=== PATIENT | female | born 1950 | race Caucasian/White ===

== ENCOUNTER → 2018-02-22 | Outpatient (CLI) | payer MEDICARE, BC | LOC: LABPAT 14:10 | PROVIDERS: ATTEND Orthopaedic Surgery | DX: Z01.812 Encounter for preprocedural laboratory examination (principal) | CPT/HCPCS: 87070 ==

== ENCOUNTER → 2018-03-25 | Outpatient (CLI) | payer MEDICARE, BC ==
[2018-03-25 12:47] LABS: Prothrombin Time 10.5 sec (9.0-12.0)
== END ==
LOC: LABPAT 11:48
PROVIDERS: ATTEND Orthopaedic Surgery
DX: Z01.812 Encounter for preprocedural laboratory examination (principal); Z51.81 Encounter for therapeutic drug level monitoring; M17.11 Unilateral primary osteoarthritis, right knee
CPT/HCPCS: 85610

== ENCOUNTER 2018-03-28 08:19 | Day surgery (SDC) | payer MEDICARE, BC ==
[2018-03-22 16:01] VITALS: BMI 27.8
--- NOTE | 2018-03-27 15:06 | HP ---
HISTORY AND PHYSICAL HISTORY: Rajani Torres is a 68-year-old patient seen with progressive right knee symptomatic osteoarthritis. We discussed treatment options. She elected to proceed with right total knee arthroplasty. Consent was obtained. Medical clearance was provided by Dr. Lara. PAST MEDICAL HISTORY: Hypertension, hyperlipidemia, [id number] diabetes. PAST SURGICAL HISTORY: Right knee arthroscopy. MEDICATIONS: Metformin, simvastatin, lisinopril/hydrochlorothiazide, Naprosyn. ALLERGIES: None reported. SOCIAL HISTORY: Patient denies tobacco use. PHYSICAL EXAMINATION: Evaluation of the right knee, range of motion is -1 to 120 degrees. There is tenderness along the medial joint line crepitus along the medial patellofemoral compartments range of motion. Pain with patellofemoral compression. Ligaments stable. Hip rotation without pain. Distal neurovascular exam is intact. RADIOGRAPHS: Radiographs of the right knee revealed moderate to severe medial moderate to severe patellofemoral compartment osteoarthritis. IMPRESSION: 1. Right knee osteoarthritis. 2. Hypertension. 3. Hyperlipidemia. 4. Ukf-grnqnce-zmnsjrocl diabetes. PLAN: Right total knee arthroplasty. MMODL / IJN: [id number] /
[~2018-03-28 08:19] MED LIST: ACETAMINOPHEN TAB 500 MG TAB PO ONE; DEXAMETHASONE SOD PHOSPHATE 10 MG/ML 1 ML VIAL IV ONE; HYDROmorphone 0.5 MG/0.5 ML SYRINGE IVP PRN; LACTATED RINGERS 1,000 ML IV SCH; LIDOCAINE 1% 20 ML VIAL (10MG/ML) FOR IV START INTRADERMA PRN; MELOXICAM 7.5 MG TAB PO ONE; ONDANSETRON 4 MG/2 ML VIAL IVP ONE; SCOPOLAMINE 1.5MG/72HR PATCH TRANSDERM ONE; TRANEXAMIC ACID 1,000 MG in SODIUM CHLORIDE 0.9% 50 ML IVPB ONE
[2018-03-28 09:14] LABS: Glucose,Whole Blood 142 mg/dL (75-99)
[2018-03-28] MEDS ORDERED: MIDAZOLAM 2 MG/2 ML VIAL IVP ONE (09:30)
[2018-03-28] MEDS ORDERED: fentaNYL (PF) 50 MCG/ML 2 ML AMP IVP ONE (09:30)
[2018-03-28] MEDS ORDERED: fentaNYL (PF) 50 MCG/ML 2 ML AMP ONE (09:46)
[2018-03-28] MEDS ORDERED: SODIUM CHLORIDE 0.9% 100 ML BAG ONE (09:46)
[2018-03-28] MEDS ORDERED: MIDAZOLAM 2 MG/2 ML VIAL ONE (09:46)
[2018-03-28] MEDS ORDERED: PROPOFOL 10 MG/ML 20 ML VIAL IV ONE (09:46)
[2018-03-28] MEDS ORDERED: TRANEXAMIC ACID 1,000 MG/10 ML VIAL ONE (09:46)
[2018-03-28] MEDS: ceFAZolin IN SWFI 2 GM/20 ML SYRINGE IVP ONE ×2 (09:49→10:17)
[2018-03-28] MEDS ORDERED: ROPIVACAINE 1,100 MG, SODIUM CHLORIDE 0.9% 500 ML 330 ML MISCELLANE PRN ×2 (10:01)
--- NOTE | 2018-03-28 10:02 | P.ONQ ---
Anesthesiology Proc Note - PNB - Peripheral Nerve Block Performed Right Adductor Canal Infusion Time Out Performed: Yes Procedure Start Time: 09:30 Indication: Acute Post-Operative Pain Sedation Type: Sedate with meaningful contact maintained Preparation: Sterile Prep Position: Supine Catheter Depth at Skin (cm): 6 Catheter: Indwelling Needle Types: Other (see comment) (Ugo) Needle Size: 100mm (4") Needle Gauge: 18 Technique: Ultrasound Injectate: 0.5% Ropivacaine (see comment for volume) (20cc) Blood Aspirated: No Pain Paresthesia on Injection Noted: No Resistance on Injection: Normal Events: Uneventful and Well Tolerated
[2018-03-28] MEDS ORDERED: ROPIVACAINE 246.25 MG, EPINEPHrine 0.5 MG, KETOROLAC 30 MG, cloNIDine HCL/PF 80 MCG, WA... MISCELLANE ONE ×5 (10:05)
[2018-03-28] MEDS ORDERED: ceFAZolin 3,000 MG in SODIUM CHLORIDE 0.9% IRRIGATIO 3,000 ML IRRIGATION ONE (10:17)
[2018-03-28] MEDS ORDERED: ONDANSETRON 4 MG/2 ML VIAL IVP PRN (11:20)
[2018-03-28] MEDS ORDERED: HYDROmorphone 0.5 MG/0.5 ML SYRINGE IVP PRN ×3 (11:20)
[2018-03-28] MEDS ORDERED: HYDROcodone/APAP 5-325MG 1 EACH TAB PO PRN (11:20)
[2018-03-28] MEDS ORDERED: NALOXONE 0.4 MG/ML 1 ML VIAL IV PRN (11:20)
--- NOTE | 2018-03-28 11:20 | P.OP ---
Date of Procedure: 03/28/18 Preoperative Diagnosis: Right knee osteoarthritis Postoperative Diagnosis: Right knee osteoarthritis Procedure(s) Performed: Right total knee arthroplasty Implants: 1. Depuy attune size 6 narrow right cruciate retaining cemented femur 2. Depuy attune size 5 fixed bearing cemented tibial baseplate 3. Depuy attune size 6 fixed bearing cruciate retaining 7 mm polyethylene tibial insert 4. Depuy attune 35 mm all polyethylene cemented patella Anesthesia: regional (Adductor canal catheter), local, spinal Surgeon: Hai Bateman Mill Tender Second Operator #1: Rick Sapp Estimated Blood Loss (ml): 45 Pathology: other (Bone) Condition: stable Disposition: PACU Indications for Procedure: 68-year-old patient seen with symptomatic right knee osteoarthritis. After treatment options were discussed, she elected to proceed with total knee arthroplasty. Operative Findings: See description of procedure Description of Procedure: Patient was taken to the operative suite after having an adductor canal catheter placed by the department of anesthesia. Patient underwent a spinal anesthetic by the department of anesthesia. Patient was given preoperative IV intake antibiotics and TXA. A well-padded tourniquet was placed about the right lower extremity. The lower extremity was then prepped and draped in the normal sterile orthopedic fashion. The extremity was elevated, a tourniquet was insufflated to 300. A standard anterior incision was made sharply through skin. Dissection was taken down through the subcutaneous soft tissues down to the extensor mechanism. A medial arthrotomy was performed, patella was everted and knee was flexed. There was advanced osteoarthritis noted. I introduced my distal intramedullary femoral drill. I then introduced the distal femoral cutting jig. Raymundo STACY secured the cutting jig with 2 pins. I held retractors in position while Raymundo STACY performed the distal femoral resection through the guide area we now removed her distal femoral cutting guide. We now placed our 4-in-1 femoral cutting block and positioned and it was secured with 2 pins by Raymundo STACY while I held the block in position. The distal femoral finishing was now completed. A proximal tibial cutting guide was positioned. I held the guide in the appropriate position with both hands well Raymundo STACY inserted stabilizing pins into the guide. Proximal tibial cut was made. We now placed a trial femoral component into position, along with an appropriate size tibial tray and insert. We now took the knee through range of motion and had full extension good flexion and good overall soft tissue balance noted. The patella was everted and stabilized with 2 towel clips held by Raymundo STACY while I performed a flush with patellar quad tendon utilizing a fresh sawblade. We templated the patella, appropriate drill holes were made. An appropriate trial patella was positioned, knee was taken through full range of motion with the patella tracking very nicely. The trial patella was removed. Drill holes were made through the femoral component. All trial components were removed after marking off the appropriate rotation of the tibia. Retractors were now positioned along the proximal tibia. An appropriate keel punch was made with the appropriate size tibial guide by myself on Raymundo STACY assisted by holding retractors. At this point appropriate size implants were chosen and opened. The joint was irrigated copiously with pulse lavage mechanical irrigation. The posterior capsule was infiltrated with local analgesic. The wound was irrigated with pulse lavage mechanical irrigation. We mixed antibiotic methylmethacrylate. We placed the knee into flexion. We placed multiple retractors assisted by Raymundo STACY to expose the proximal tibia. Once the methyl methacrylate was ready, the tibial component was cemented into place removing any excess methylmethacrylate form by both myself and Raymundo STACY. The femoral component was cemented into place removing the removing any excess methylmethacrylate performed by both myself and Raymundo STACY. We then inserted the appropriate size polyethylene tibial insert. We made sure that it was locked into position. We took the knee into full extension, and then back in a flexion making sure we had removed any excess methylmethacrylate. The patellar component was then cemented down and secured with clamp. Excess methylmethacrylate removed. We kept the knee in full extension, patellar clamp in position until methylmethacrylate had hardened. Once it had hardened the patellar clamp was removed. The knee was taken through full range of motion. The patella tracked nicely. There was good soft tissue balancing. The tourniquet was now released. Additional hemostasis was achieved via electrocautery. A second gram of TXA was given. The wound again was irrigated with pulse lavage mechanical irrigation. The superficial soft tissues were infiltrated local analgesic. The extensor mechanism was repaired with Vicryl. We checked the repair with range of motion and it was stable. The subcutaneous soft tissues were repaired with Vicryl in layers. The skin was approximated with pernio/Dermabond. Sterile dressings were applied followed by loose web roll and Cory bandage. The patient was transferred to a bed, and taken to recovery in stable and satisfactory condition. Raymundo STACY assisted with this complex procedure.
--- NOTE | 2018-03-28 12:13 | XR ---
EXAMINATION TYPE: XR knee limited RT DATE OF EXAM: 03/28/2018 CLINICAL HISTORY: Right knee pain and arthritis status post total knee replacement. TECHNIQUE: Portable AP and crosstable lateral views of the right knee are obtained immediately posto peratively. COMPARISON: None FINDINGS: Metallic hardware from total right knee arthroplasty is seen and appears satisfactory in a lignment and position. There is evidence of recent surgery with diffuse subcutaneous gas and soft ti ssue swelling noted. IMPRESSION: METALLIC HARDWARE FROM TOTAL RIGHT KNEE ARTHROPLASTY IS SATISFACTORY IN ALIGNMENT.
[2018-03-28 12:21] LABS: Glucose,Whole Blood 161 mg/dL (75-99)
[2018-03-28] MEDS ORDERED: SODIUM CHLORIDE 0.9% 1,000 ML IV ONE (12:43)
[2018-03-28] MEDS: traMADol 50 MG TAB PO SCH ×2 (14:30→18:41)
[2018-03-28] MEDS: LACTATED RINGERS 1,000 ML IV SCH (15:20)
[2018-03-28 17:34] LABS: Glucose,Whole Blood 176 mg/dL (75-99)
[2018-03-28] MEDS: ceFAZolin IN SWFI 2 GM/20 ML SYRINGE IVP SCH ×2 (18:34→23:24)
--- NOTE | 2018-03-28 20:56 | P.CONS ---
History of Present Illness - History of Present Illness this is a pleasant 68 yo F she is status post Right total knee arthroplasty , she has past medical history of diabetes mellitus, hypertension , hyperlipidemia and we were consulted for medical management . pt was lying in bed fully awake and oriented. she states her abd pain is controlled , she denies chest pain , no dyspnea , no abdominal pain . Past Medical History Past Medical History: Diabetes Mellitus, Hyperlipidemia, Hypertension, Osteoarthritis (OA) History of Any Multi-Drug Resistant Organisms: None Reported Past Surgical History: Appendectomy, Hysterectomy, Orthopedic Surgery Additional Past Surgical History / Comment(s): yakov knee arthroscopy, rt rotator cuff, yakov carpal tunnel, breast biopsy "benign" Past Anesthesia/Blood Transfusion Reactions: Motion Sickness, Postoperative Nausea & Vomiting (PONV) Smoking Status: Never smoker - Past Family History Mother Family Medical History: No Reported History Medications and Allergies Home Medications Medication Instructions Recorded Confirmed Type Lisinopril-Hctz 10-12.5 mg 0.5 tab PO DAILY 11/16/14 03/28/18 History [Zestoretic 10-12.5] Naproxen Sodium [Aleve] 220 mg PO Q12HR 11/16/14 03/22/18 History Simvastatin [Zocor] 40 mg PO HS 11/16/14 03/28/18 History metFORMIN HCL [Glucophage] 500 mg PO BID 11/16/14 03/28/18 History Allergies Allergy/AdvReac Type Severity Reaction Status Date / Time No Known Allergies Allergy Verified 11/16/14 08:57 Physical Exam Vitals: Vital Signs Temp Pulse Pulse Resp BP BP Pulse Ox 03/28/18 12:49 60 16 123/61 95 03/28/18 12:34 63 16 121/60 95 03/28/18 12:15 61 16 130/61 94 L 03/28/18 12:00 59 L 16 128/61 100 03/28/18 11:45 97.6 F 69 14 133/64 99 03/28/18 09:38 56 L 18 143/71 99 03/28/18 09:04 203/90 03/28/18 08:43 97.6 F 71 18 215/92 98 Intake and Output 03/27/18 03/28/18 03/28/18 22:59 06:59 14:59 Intake Total 1026 Output Total 45 Balance 981 Intake: IV 1026 Output: Estimated Blood Loss 45 GENERAL: The patient is alert and oriented x3, not in any acute distress. Well developed, well nourished. HEENT: Pupils are round and equally reacting to light. EOMI. No scleral icterus. No conjunctival pallor. Normocephalic, atraumatic. No pharyngeal erythema. No thyromegaly. CARDIOVASCULAR: S1 and S2 present. No murmurs, rubs, or gallops. PULMONARY: Chest is clear to auscultation, no wheezing or crackles. ABDOMEN: Soft, nontender, nondistended, normoactive bowel sounds. No palpable organomegaly. MUSCULOSKELETAL: No joint swelling or deformity. -EXTREMITIES: No cyanosis, clubbing, or pedal edema. her right lower extremity is is dressing NEUROLOGICAL: Gross neurological examination did not reveal any focal deficits. SKIN: No rashes. Results Labs: Abnormal Lab Results - Last 24 Hours (Table) 03/28/18 03/28/18 Range/Units 08:59 12:18 POC Glucose (mg/dL) 142 H 161 H (75-99) mg/dL Assessment and Plan Assessment: this is a pleasant 68 o F she is status post right knee arthroplasty . Labs and medication were reviewed. Continue same treatment. Continue with symptomatic treatment. Resume home medication. Monitor lytes and vitals. DVT prophylaxis and pain management as per primary team. Further recommendations of the clinical course of the patient DVT prophylaxis: she is on lovenox GI Prophylaxis: Pepcid PT/OT: Pending, pt possible will need rehab.
[2018-03-28] MEDS ORDERED: SENNOSIDES-DOCUSATE SODIUM 1 EACH TAB PO SCH (21:00)
[2018-03-28] MEDS ORDERED: ATORVASTATIN 20 MG TAB PO SCH (21:00)
[2018-03-28 21:11] LABS: Glucose,Whole Blood 219 mg/dL (75-99)
[2018-03-28] MEDS: HYDROcodone/APAP 5-325MG 1 EACH TAB PO PRN (23:21)
[2018-03-28] MEDS: ENOXAPARIN 30 MG/0.3 ML SYRINGE SQ SCH (23:22)
[2018-03-28] MEDS: INSULIN ASPART 100 UNIT/ML 1 ML 10 ML VIAL SQ SCH (23:23)
[2018-03-28 23:31] LABS: Glucose,Whole Blood 167 mg/dL (75-99)
[2018-03-29] MEDS: traMADol 50 MG TAB PO SCH ×3 (00:35→13:18)
[2018-03-29] MEDS: LACTATED RINGERS 1,000 ML IV SCH ×2 (00:40→13:19)
[2018-03-29 07:14] VITALS: BP 117/45; PULSE 63; RESP 12; TEMP 97.9
[2018-03-29] MEDS ORDERED: INSULIN ASPART 100 UNIT/ML 1 ML 10 ML VIAL SQ SCH (07:30)
[2018-03-29 08:00] LABS: Glucose,Whole Blood 118 mg/dL (75-99)
[2018-03-29 08:09] LABS: Basophils % (A) 0 %; Eosinophils # (A) 0.1 k/uL (0-0.7); Eosinophils % (A) 1 %; HCT 31.9 % (34.0-46.0); HGB 10.7 gm/dL (11.4-16.0); Lymphocytes # (A) 2.1 k/uL (1.0-4.8); Lymphocytes % (A) 22 %; MCH 29.3 pg (25.0-35.0); MCHC 33.5 g/dL (31.0-37.0); MCV 87.7 fL (80.0-100.0); Mean Platelet Volume 6.4; Monocytes # (A) 0.4 k/uL (0-1.0); Monocytes % (A) 4 %; Neutrophils # (A) 6.8 k/uL (1.3-7.7); Neutrophils % (A) 73 %; Platelet Count 206 k/uL (150-450); RBC 3.64 m/uL (3.80-5.40); RDW 13.1 % (11.5-15.5); WBC 9.3 k/uL (3.8-10.6)
[2018-03-29] MEDS ORDERED: MELOXICAM 7.5 MG TAB PO SCH (09:00)
[2018-03-29] MEDS: INSULIN ASPART 100 UNIT/ML 1 ML 10 ML VIAL SQ SCH ×2 (10:13→13:20)
[2018-03-29] MEDS: ENOXAPARIN 30 MG/0.3 ML SYRINGE SQ SCH (10:49)
--- NOTE | 2018-03-29 11:05 | P.PN ---
Subjective this is a pleasant 68 yo F she is status post Right total knee arthroplasty , she has past medical history of diabetes mellitus, hypertension , hyperlipidemia and we were consulted for medical management . pt was lying in bed fully awake and oriented. she states her abd pain is controlled , she denies chest pain , no dyspnea , no abdominal pain . 03/29/2018 Patient is doing well with minimal pain at the surgery site of the right knee. Patient denies chest pain, no dyspnea. No change in urine or bowel habits.Vitas looks stable. WBC is 9.3K, hemoglobin 10.7. Sugar is controlled.pain management and DVT prophylaxis as per the primary surgical team. Currently patient on Lovenox 30 mg twice a day. Objective - Vital Signs Vital signs: Vital Signs Temp 97.9 F 03/29/18 07:13 Pulse 63 03/29/18 07:13 Resp 12 03/29/18 07:13 BP 117/45 03/29/18 07:13 Pulse Ox 96 03/29/18 07:13 Intake & Output 03/28/18 03/29/18 03/29/18 18:59 06:59 18:59 Intake Total 1026 1040 Output Total 45 600 Balance 981 440 Weight 73.482 kg Intake: IV 1026 Intake, IV Titration 1040 Amount Lactated Ringers 1,000 ml 1040 @ 80 mls/hr IV .[id number] [facility] Rx#:[id number] Output: Urine 600 Estimated Blood Loss 45 Other: Voiding Method Toilet # Voids 1 - Exam GENERAL: The patient is alert and oriented x3, not in any acute distress. Well developed, well nourished. HEENT: Pupils are round and equally reacting to light. EOMI. No scleral icterus. No conjunctival pallor. Normocephalic, atraumatic. No pharyngeal erythema. No thyromegaly. CARDIOVASCULAR: S1 and S2 present. No murmurs, rubs, or gallops. PULMONARY: Chest is clear to auscultation, no wheezing or crackles. ABDOMEN: Soft, nontender, nondistended, normoactive bowel sounds. No palpable organomegaly. MUSCULOSKELETAL: No joint swelling or deformity. -EXTREMITIES: No cyanosis, clubbing, or pedal edema. her right lower extremity is is dressing NEUROLOGICAL: Gross neurological examination did not reveal any focal deficits. SKIN: No rashes. - Labs CBC & Chem 7: 03/29/18 07:14 Labs: Abnormal Lab Results - Last 24 Hours (Table) 03/28/18 03/28/18 03/28/18 Range/Units 12:18 17:22 21:00 RBC (3.80-5.40) m/uL Hgb (11.4-16.0) gm/dL Hct (34.0-46.0) % POC Glucose (mg/dL) 161 H 176 H 219 H (75-99) mg/dL 03/28/18 03/29/18 03/29/18 Range/Units 23:19 07:14 07:47 RBC 3.64 L (3.80-5.40) m/uL Hgb 10.7 L (11.4-16.0) gm/dL Hct 31.9 L (34.0-46.0) % POC Glucose (mg/dL) 167 H 118 H (75-99) mg/dL Assessment and Plan Assessment: history of degenerative joint disease, status post right knee arthroplasty History of diabetes mellitus Essential hypertension Hyperlipidemia Plan: this is a pleasant 68 o F she is status post right knee arthroplasty . Labs and medication were reviewed. Continue same treatment. Continue with symptomatic treatment. Resume home medication. Monitor lytes and vitals. DVT prophylaxis and pain management as per primary team. Further recommendations of the clinical course of the patient DVT prophylaxis: she is on lovenox GI Prophylaxis: Pepcid PT/OT: Pending, pt possible will need rehab. patient was instructed to follow up with PCP within one week of discharge Packet for consulting us, please feel free to contact us for any further question or clarification
--- NOTE | 2018-03-29 11:28 | P.PN ---
Progress Note - Text Anesthesia POD 1. Patient is status post right TKR under spinal anesthesia with a right adductor canal catheter placed for postoperative pain relief. With ropivacaine 0.2% running at 6 cc's per hour, the patient's VAS is (0, 3). Catheter site is clean dry and intact.
--- NOTE | 2018-03-29 11:31 | P.PN ---
Progress Note - Text Anesthesia POD 1. Patient is status post right TKR under spinal anesthesia with a right adductor canal catheter placed for postoperative pain relief. With ropivacaine 0.2% running at 8 cc's per hour, the patient's VAS is (0, 3). Catheter site is clean dry and intact.
[2018-03-29] MEDS ORDERED: MULTIVITAMINS, THERA 1 EACH TAB PO SCH (12:00)
[2018-03-29 12:02] LABS: Glucose,Whole Blood 132 mg/dL (75-99)
--- NOTE | 2018-03-29 12:26 | P.PN ---
Subjective Progress Note Date: 03/29/18 Principal diagnosis: Status post right total knee arthroplasty Patient is seen today resting in her hospital bed, she appears comfortable. She is tolerated physical therapy well. She has no acute complaints at this time. Denies any chest pain or shortness of breath. Objective - Vital Signs Vital signs: Vital Signs Temp 97.9 F 03/29/18 07:13 Pulse 63 03/29/18 07:13 Resp 12 03/29/18 07:13 BP 117/45 03/29/18 07:13 Pulse Ox 96 03/29/18 07:13 Intake & Output 03/28/18 03/29/18 03/29/18 18:59 06:59 18:59 Intake Total 1026 1040 Output Total 45 600 Balance 981 440 Weight 73.482 kg Intake: IV 1026 Intake, IV Titration 1040 Amount Lactated Ringers 1,000 ml 1040 @ 80 mls/hr IV .[id number] [facility] Rx#:[id number] Output: Urine 600 Estimated Blood Loss 45 Other: Voiding Method Toilet # Voids 1 - Exam Right lower extremity: Incision is clean, dry, and intact. The exofin fusion tape is in good condition. There is minimal soft tissue swelling and ecchymosis surrounding the medial and lateral aspects of the incision. Calf is soft, no tenderness with palpation. Plantar flexion, dorsiflexion, EHL, FHL are intact. Sensory exam to light touch throughout the extremity is intact, dorsal pedis pulses 2+. - Labs CBC & Chem 7: 03/29/18 07:14 Labs: Abnormal Lab Results - Last 24 Hours (Table) 03/28/18 03/28/18 03/28/18 Range/Units 17:22 21:00 23:19 RBC (3.80-5.40) m/uL Hgb (11.4-16.0) gm/dL Hct (34.0-46.0) % POC Glucose (mg/dL) 176 H 219 H 167 H (75-99) mg/dL 03/29/18 03/29/18 03/29/18 Range/Units 07:14 07:47 11:47 RBC 3.64 L (3.80-5.40) m/uL Hgb 10.7 L (11.4-16.0) gm/dL Hct 31.9 L (34.0-46.0) % POC Glucose (mg/dL) 118 H 132 H (75-99) mg/dL Assessment and Plan Plan: Assessment: 1. Postop day #1 status post right total knee arthroplasty Plan: Pain control, we'll discharge home on oral medication GI and DVT prophylaxis, aspirin 81 mg twice a day Wound care instructions were discussed Home physical therapy and nursing after discharge Medical recommendations Discharge planning: Plan for dc home today Time with Patient: Less than 30
--- NOTE | 2018-03-29 12:29 | P.DS ---
Providers Date of admission: 03/28/2018 Expected date of discharge: 03/29/18 Attending physician: Hai Bateman Consults: 03/28/18 11:20 Consult Physician Routine Consulting Provider: Zackery Lara Consult Reason/Comments: Medical management Do you want consulting provider notified?: Yes 03/28/18 11:54 Consult Physician Routine Consulting Provider: Silvio Vasques Consult Reason/Comments: Medical Managment Do you want consulting provider notified?: Already Contacted Primary care physician: Zackery Lara [facility] Course: Date of admission: 03/28/2018 Date of discharge: 03/29/2018 Admission diagnosis: Status post right total knee arthroplasty Discharge diagnosis: Same Attending physician: Dr. Bateman Surgical procedures: Right total knee arthroplasty Brief history: Patient is a 5-year-old female with a history of progressive primary right knee osteoarthritis. At this point patient has failed conservative treatment measures and has opted to proceed with a elective right total knee arthroplasty. Hospital course: Details of patient's surgery can be found in operative report. Patient tolerated the procedure well and was subsequently transported to orthopedic floor. Patient's orthopeidc and medical care was provided daily. Patient had daily laboratory tests performed for evaluation of overall blood counts. Patient had daily physical therapy to include strengthening range of motion as well as education with walker ambulation. Patient had daily CPM usage as part of their physical therapy program. Patient was treated with Lovenox for their postoperative DVT prophylaxis during their inpatient stay. Patient was noted to have a relatively uneventful postoperative course. Patient reported satisfactory pain control with oral pain medications by postoperative day 0. Patient showed satisfactory progress with physical therapy. Patient moved steadily through the program and had no difficulty meeting the goals by postoperative day 1. Given patient's otherwise satisfactory course and having met physical therapy goals, plan is to discharge patient home on postoperative day 1. Discharge condition/disposition: Patient will be discharged home in stable condition. Discharge medications: Instructions are given on resumption of patient's normal daily medications per primary care recommendation, in addition patient will be prescribed [place] 5 mg/325 mg, tramadol 50 mg, Colace 100 mg, aspirin 81 mg. Discharge instructions: 1. Wound care and infection precautions, keep incision dry and covered while showering, no lotions, creams, moisturizers. No soaking, tubs, pools, hottubs. Do not scrub over the incision. 2. Weight-bear as tolerated with walker / cane until follow-up. 3. Ice and elevate when necessary. Do not exceed 20 minutes per hour with ice pack. 4. Utilize compression sleeve until seen at first follow up appointment. 5. Visiting nursing care. 6. Home physical therapy including home CPM]. 7. Pain meds and anticoagulants per prescription. 8. Pain medication has potential to cause constipation. Increase oral fluid and fiber intake. Contact primary care provider if you have not had a bowel movement within 48 hours after discharge 9. No anti-inflammatory medication until discussed at first post operative visit, this including Motrin, Aleve, Mobic, Diclofenac. 10. Follow up in office at 2 weeks postop with Raymundo Sapp PA-C 11. Follow up with your primary care doctor 7-10 days after discharge. 12. Contact [facility] with any questions, . Procedures: Right total knee arthroplasty Patient Condition at Discharge: Good Plan - Discharge Summary Discharge Rx Participant: No New Discharge Prescriptions: New Aspirin [Adult Low Dose Aspirin EC] 81 mg PO BID #60 tablet. Docusate [Colace] 100 mg PO DAILY #30 capsule Hydrocodone/Acetaminophen [[place] 5-325] 1 - 2 each PO Q6HR PRN #30 tab PRN Reason: Pain traMADol HCl [Ultram] 50 mg PO Q6H PRN #28 tab PRN Reason: Pain No Action metFORMIN HCL [Glucophage] 500 mg PO BID Simvastatin [Zocor] 40 mg PO HS Lisinopril-Hctz 10-12.5 mg [Zestoretic 10-12.5] 0.5 tab PO DAILY Naproxen Sodium [Aleve] 220 mg PO Q12HR Discharge Medication List Lisinopril-Hctz 10-12.5 mg [Zestoretic 10-12.5] 0.5 tab PO DAILY 11/16/14 [ History] Naproxen Sodium [Aleve] 220 mg PO Q12HR 11/16/14 [History] Simvastatin [Zocor] 40 mg PO HS 11/16/14 [History] metFORMIN HCL [Glucophage] 500 mg PO BID 11/16/14 [History] Aspirin [Adult Low Dose Aspirin EC] 81 mg PO BID #60 tablet. 03/29/18 [Rx] Docusate [Colace] 100 mg PO DAILY #30 capsule 03/29/18 [Rx] Hydrocodone/Acetaminophen [Waycross 5-325] 1 - 2 each PO Q6HR PRN #30 tab 03/29/18 [Rx] traMADol HCl [Ultram] 50 mg PO Q6H PRN #28 tab 03/29/18 [Rx] Follow up Appointment(s)/Referral(s): [facility], [NON-STAFF] - Rick Sapp PAC [PHYSICIAN POCKET MARKER] - 2 Weeks Zackery Lara DO [Primary Care Provider] - 1 Week Activity/Diet/Wound Care/Special Instructions: Orthopedic Discharge Instructions: 1. Wound care and infection precautions, keep incision dry and covered while showering, no lotions, creams, moisturizers. No soaking, pools, hot tubs. Do not scrub over incision. 2. Weight-bear as tolerated with walker / cane until follow-up. 3. Ice and elevate when necessary. Do not exceed 20 minutes per hour with ice pack. 4. Utilize compression sleeve until seen at first follow up appointment. 5. Pain meds and anticoagulants per prescription. 6. Pain medication has potential to cause constipation. Increase oral fluid and fiber intake. Contact primary care provider if you have not had a bowel movement within 48 hours after discharge. 7. No anti-inflammatory medication until discussed at first post operative visit, this including Motrin, Aleve, Mobic, Diclofenac. 8. Follow up in office at 2 weeks postop with Raymundo Sapp PA-C 9. Follow up with your primary care doctor 7-10 days after discharge. 10. Contact [facility] with any questions, . Discharge Disposition: HOME WITH HOME HEALTH SERVICES
[2018-03-29] MEDS: HYDROcodone/APAP 5-325MG 1 EACH TAB PO PRN (13:59)
== END 2018-03-29 14:05 | disposition home health service (06) ==
LOC: OR 08:19 → 4SSUR 11:15 → OR 03-29 14:05
PROVIDERS: ATTEND Orthopaedic Surgery
DX: M17.11 Unilateral primary osteoarthritis, right knee (principal); I10 Essential (primary) hypertension; E78.5 Hyperlipidemia, unspecified; E11.9 Type 2 diabetes mellitus without complications; Z79.84 Long term (current) use of oral hypoglycemic drugs; Z79.82 Long term (current) use of aspirin; Z79.1 Long term (current) use of non-steroidal anti-inflammatories (NSAID); Z79.899 Other long term (current) drug therapy
CPT/HCPCS: 27447; 97116; 97161; 85025; 88300; 73560; C1713; C1776; C1772; J2250; J0171; J1100; J2405; J0690 ×2; J3010; J1885; J1650 ×2; J2795; J2704; J0735

== ENCOUNTER → 2020-01-19 | Outpatient (CLI) | payer MEDICARE, BC ==
--- NOTE | 2020-01-19 16:15 | BD ---
EXAMINATION TYPE: Axial Bone Density DATE OF EXAM: 01/19/2020 COMPARISON: NONE CLINICAL HISTORY: Height: 64 Weight: 173.2 FRAX RISK QUESTIONS: Alcohol (3 or more units per day): no Family History (Parent hip fracture): no Glucocorticoids (More than 3mos): no (Ex: prednisone, prednisolone, methylprednisolone, dexamethasone, and hydrocortisone). History of Fracture in Adulthood: yes Secondary Osteoporosis: 1. Type 1 Diabetes: no 2. Hyperthyroidism: no 3. Menopause before 45: yes 4. Malnutrition: no 5. Chronic liver disease: no Rheumatoid Arthritis: no Current Tobacco Use: no RISK FACTORS HISTORY OF: Surgery to Spine/Hip(right/left)/Wrist (right/left): no Family History of Osteoporosis: yes Active: yes Diet low in dairy products/other sources of calcium: no Postmenopausal woman: age 35 Lost more than 2 inches in height since high school: no MEDICATIONS: lisinopril, htz, simvastatin, metformin Additional History: EXAM MEASUREMENTS: Bone mineral densitometry was performed using the [employer] System. Bone mineral density as measured about the Lumbar spine is: ----- L1-L4(G/cm2): 1.263 T Score Values are as follows: ----- L2: 0.5 ----- L3: 1.0 ----- L4: 1.0 ----- L1-L4: 0.7 Bone mineral density : baseline Bone mineral density about the R hip (g/cm2): 0.858 Bone mineral density about the L hip (g/cm2): 0.903 T Score values are as follows: -----R Neck: -1.3 -----L Neck: -1.0 -----R Total: -1.0 -----L Total: -0.6 Bone mineral density : baseline IMPRESSION: Osteopenia (T Score between -2.5 and -1). There is slightly increased risk of fracture and the patient may be considered for treatment. Re-Screen 2-5 years. NOTE: T-SCORE=SD OF THE YOUNG ADULT MEAN.
== END | disposition home or self-care (01) ==
LOC: RADBDWWP 10:40
PROVIDERS: ATTEND Family Medicine
DX: M85.80 Other specified disorders of bone density and structure, unspecified site (principal)
CPT/HCPCS: 77080

== ENCOUNTER → 2020-12-12 | Outpatient (CLI) | payer MEDICARE, BC ==
--- NOTE | 2020-12-12 14:35 | MR ---
EXAMINATION TYPE: MR shoulder RT wo con DATE OF EXAM: 12/12/2020 12:32 PM COMPARISON: NONE HISTORY: Right Shoulder pain 4-5 months TECHNIQUE: Multiplanar multispin echo imaging of the right shoulder was performed. FINDINGS: Rotator cuff : Diffuse heterogeneity thickening of the supraspinatus tendon compatible with chronic t endinopathy. Multiple small microtear is seen within the substance of the supraspinatus tendon withou t evidence for full-thickness tear. Metallic shaving artifact noted suggesting prior surgical interve ntion. Correlate clinically. Remaining constituents of the rotator cuff are grossly intact. Bursa: No bursal effusion or thickening is seen. Musculature: There is no muscular tear, contusion, or atrophy. Acromioclavicular joint : Moderate AC joint arthropathy. Lateral downsloping of the acromion resultin g in impingement. Osseous structures : There are no fractures or regions of abnormal bone marrow signal intensity. Long biceps tendon : The biceps tendon is normally situated within the bicipital groove. No complete or partial biceps tendon tear is present. Glenohumeral Joint fluid : Small joint effusion present. Cartilage and Bone : No focal hyaline cartilage defects are noted. No Hill-Sachs, reverse Hill-Sachs, or bony Bankart lesions are seen. Labrum : Diminutive posterior inferior glenoid labrum may reflect tear. OTHER FINDINGS : none IMPRESSION: 1. Chronic tendinopathy supraspinatus tendon with multiple microtears noted. No evidence for full-thi ckness tear. Subacromial impingement. 2. Diminutive the posterior inferior glenoid labrum may reflect tear.
== END | disposition home or self-care (01) ==
LOC: RADMRIMAIN 11:35
PROVIDERS: ATTEND Orthopaedic Surgery
DX: M67.813 Other specified disorders of tendon, right shoulder (principal)

== ENCOUNTER 2021-02-12 08:14 | Day surgery (SDC) | payer MEDICARE, BC ==
[2021-02-05 15:55] VITALS: BMI 28.1
--- NOTE | 2021-02-11 20:17 | HP ---
HISTORY AND PHYSICAL DATE OF SURGERY: 02/12/2021 Rajani Torres is a 71-year-old patient seen with progressive right shoulder pain. We discussed options for treatment. She elected to proceed with shoulder arthroscopy. Consent was obtained. Medical clearance was provided by Dr. Zackery Lara. PAST MEDICAL HISTORY: Hypertension, hyperlipidemia, xvh-yxclivy-wbasrloop diabetes. PAST SURGICAL HISTORY: Right knee arthroscopy. DAILY MEDICATIONS: Metformin, simvastatin, lisinopril/hydrochlorothiazide, Aleve. ALLERGIES: NONE. SOCIAL HISTORY: She denies tobacco use. PHYSICAL EVALUATION OF THE RIGHT SHOULDER: Flexion is 90 degrees, abduction 70 degrees, external rotation 30 degrees with pain and weakness. Tenderness along the anterolateral acromion and rotator cuff insertion. Impingement is positive at 70 degrees. Drop-arm sign is positive. Cross-body adduction sign is positive. Distal neurovascular exam is intact. Right shoulder radiographs revealed a type 2 anterior acromion, evidence for acromioclavicular joint osteoarthritis and cystic changes of the tuberosity. MRI of the right shoulder revealed a partial rotator cuff tendon tear along with impingement and labral tear. IMPRESSION: 1. Right shoulder impingement with partial rotator cuff tear. 2. Right shoulder acromioclavicular joint osteoarthritis. 3. Right shoulder labral tear. 4. Hypertension. 5. Hyperlipidemia. 6. Mtd-rmjogxj-nufuvikdn diabetes. PLAN: Right shoulder arthroscopy with subacromial decompression, Sterling procedure, possible rotator cuff repair and debridement. MMODL / IJN: [id number] /
[~2021-02-12 08:14] MED LIST changes: -ACETAMINOPHEN TAB 500 MG TAB PO ONE; -DEXAMETHASONE SOD PHOSPHATE 10 MG/ML 1 ML VIAL IV ONE; -HYDROmorphone 0.5 MG/0.5 ML SYRINGE IVP PRN; -LACTATED RINGERS 1,000 ML IV SCH; -LIDOCAINE 1% 20 ML VIAL (10MG/ML) FOR IV START INTRADERMA PRN; -MELOXICAM 7.5 MG TAB PO ONE; -ONDANSETRON 4 MG/2 ML VIAL IVP ONE; +Pre Op ABX Message 1 EACH MISC MISCELLANE ONE; -SCOPOLAMINE 1.5MG/72HR PATCH TRANSDERM ONE; -TRANEXAMIC ACID 1,000 MG in SODIUM CHLORIDE 0.9% 50 ML IVPB ONE
[2021-02-12] MEDS ORDERED: HYDROmorphone 0.5 MG/0.5 ML SYRINGE IVP PRN (08:33)
[2021-02-12] MEDS ORDERED: LACTATED RINGERS 1,000 ML IV SCH (08:33)
[2021-02-12] MEDS ORDERED: MIDAZOLAM 2 MG/2 ML VIAL IV PRN (08:33)
[2021-02-12] MEDS ORDERED: DEXAMETHASONE SOD PHOSPHATE 4 MG/ML 1 ML VIAL IV ONE (08:33)
[2021-02-12] MEDS ORDERED: ONDANSETRON 4 MG/2 ML VIAL IVP ONE (08:33)
[2021-02-12] MEDS ORDERED: ONDANSETRON 4 MG/2 ML VIAL ONE (08:35)
[2021-02-12 09:10] LABS: Glucose,Whole Blood 144 mg/dL (75-99)
[2021-02-12] MEDS ORDERED: LIDOCAINE 1% (10MG/ML) FOR IV START INTRADERMA ONE (09:10)
[2021-02-12] MEDS ORDERED: MIDAZOLAM 2 MG/2 ML VIAL IVP ONE (09:12)
[2021-02-12] MEDS ORDERED: fentaNYL (PF) 50 MCG/ML 2 ML AMP IVP ONE (09:12)
[2021-02-12] MEDS ORDERED: MIDAZOLAM 2 MG/2 ML VIAL ONE (09:32)
[2021-02-12] MEDS ORDERED: SUCCINYLCHOLINE CHLORIDE 100 MG/5 ML SYR IV ONE (09:32)
[2021-02-12] MEDS ORDERED: PROPOFOL 10 MG/ML 20 ML VIAL IV ONE (09:32)
[2021-02-12] MEDS ORDERED: ROPIVACAINE 5 MG/ML 30 ML VIAL ONE (09:32)
[2021-02-12] MEDS ORDERED: ceFAZolin 1,000 MG VIAL ONE (09:32)
[2021-02-12] MEDS ORDERED: HYDROmorphone (PF) 1 MG/ML ONE (09:32)
[2021-02-12] MEDS ORDERED: LIDOCAINE 1% INJ 10MG/ML (20 ML MDV) ONE (09:32)
[2021-02-12] MEDS ORDERED: fentaNYL (PF) 50 MCG/ML 2 ML AMP ONE (09:32)
--- NOTE | 2021-02-12 09:40 | P.ANPRN ---
Procedure Note - Anesthesia - Nerve Block Performed Right Interscalene Single Time Out Performed: Yes (911) Date of Procedure: 02/12/21 Procedure Start Time: :13 Procedure Stop Time: :20 Location of Patient: PreOp Indication: Acute Post-Operative Pain, Requested by Surgeon Specifically requested for management of pain by DrIwona: Hai Bateman Sedation Type: Sedate with meaningful contact maintained Preparation: Sterile Prep Position: Supine Catheter: None Needle Types: Pajunk Needle Gauge: 21 Ultrasound used to visualize needle placement: Yes Ultrasound used to observe medication spread: Yes Injectate: 0.5% Ropivacaine (see comment for volume) (30cc) Blood Aspirated: No Pain Paresthesia on Injection Noted: No Resistance on Injection: Normal Image Stored and Saved: Yes Events: Uneventful and Well Tolerated
--- NOTE | 2021-02-12 11:31 | P.OP ---
Date of Procedure: 02/12/21 Preoperative Diagnosis: Right shoulder impingement Postoperative Diagnosis: 1. Right shoulder rotator cuff tear 2. Right shoulder impingement 3. Right shoulder acromioclavicular joint osteoarthritis 4. Right shoulder partial long head biceps tendon tear Procedure(s) Performed: 1. Right shoulder arthroscopic rotator cuff repair 2. Right shoulder arthroscopic subacromial decompression 3. Right shoulder arthroscopic Sterling procedure 4. Right shoulder arthroscopic biceps tenotomy Implants: 44.75 Arthrex swivel lock anchors Anesthesia: GETA, regional (Interscalene block) Surgeon: Hai Bateman Management Advisor #1: Rick Sapp Estimated Blood Loss (ml): 11 Pathology: none sent Condition: stable Disposition: PACU Indications for Procedure: 71-year-old patient seen with progressive right shoulder pain. After treatment options were discussed, she elected to proceed with arthroscopy. Operative Findings: See description of procedure Description of Procedure: Patient underwent an interscalene block by department of anesthesia. The patient was then taken to the operative suite. The patient underwent a general anesthetic by the department of anesthesia. The patient was placed into a lateral position and secured. There was appropriate padding of the bony prominence. Right shoulder was then prepped and draped in normal sterile orthopedic fashion. We placed the extremity in 10 pounds of longitudinal traction. A posterior incision was now made for a posterior working portal site. The trocar and cannula were inserted into the glenohumeral joint. Arthroscopy was initiated. Spinal needle was now inserted anteriorly, to ascertain the anterior working portal site. An incision was now made in that area, a trocar was inserted followed by a probe. There was partial tearing along with hyperemia long head biceps tendon. There were grade 1/2 diffuse chondromalacia changes of the glenohumeral joint with no osteochondral tears. The labrum was somewhat frayed but no tears were evident. I performed an arthroscopic biceps tenotomy. The labrum was again probed and found to be stable. Instruments now removed from the glenohumeral joint. Utilizing the posterior working portal site, the trocar and cannula were inserted into the subacromial space. Arthroscopy initiated. I made an incision 2 fingerbreadths lateral to the acromion. I introduced my trocar followed by my ArthroCare ablator. I now began ablating thick subacromial bursal tissue, which exposed the undersurface of the anterior acromion. There was diminished subacromial space. There was a very prominent anterior acromion. A motorized bur was introduced and a subacromial decompression was performed. I also excised some osteophytes off the inferior aspect of the distal clavicle. The AC joint was visualized and noted to be fairly arthritic. The motorized bur was introduced in the anterior portal site and a Sterling procedure was performed without difficulty, decompressing the AC joint nicely. I turned my attention to the rotator cuff. There was a 2.5 cm rotator cuff tear. I debrided the margins getting down to stable tendon tissue. I introduced my motorized bur and abraded the footprint area, getting some petechial bleeding. I now made an accessory portal site off the lateral aspect of the acromion. I punched 2 holes medial for medial row fixation with the assistance of Raymundo STACY carefully tapping the punch with a mallet as I held the punch and the camera. I now introduced both anchors into the pre-punched holes and Raymundo STACY tapped them with the mal let as I held anchors and the camera. Raymundo STACY now screwed the anchors in place a while I held the anchor guide and camera. All 8 limbs of suture were now passed through good bites of rotator cuff tendon. I now punched 2 holes for lateral row fixation again I held the punch and camera while Raymundo STACY used a mallet to tap in the punch. We now passed sutures through both anchors and i ndividually I introduced the anchors into the pre-punch holes I held the anchor guide in position with one hand holding the camera with the other hand while Raymundo STACY tensioned the sutures and screwed in the anchors one at a time. All residual suture limbs were now clipped. We had good compression of the tendon along the entire footprint. Instruments now removed from the portal sites. All portal sites were approximated with nylon suture. Sterile dressings were applied followed by a shoulder immobilizer. Rick STACY assisted in this complex case. The patient was awakened, transferred to a bed, and taken to recovery in stable condition.
[2021-02-12 11:59] VITALS: TEMP 96.8
[2021-02-12 13:21] VITALS: BP 140/80; PULSE 60; RESP 18
== END 2021-02-12 13:43 | disposition home or self-care (01) ==
LOC: OR 08:14
PROVIDERS: ATTEND Orthopaedic Surgery
DX: M75.101 Unspecified rotator cuff tear or rupture of right shoulder, not specified as traumatic (principal); M25.811 Other specified joint disorders, right shoulder; M19.011 Primary osteoarthritis, right shoulder; S46.111A Strain of muscle, fascia and tendon of long head of biceps, right arm, initial encounter
CPT/HCPCS: 29827; 29822; 23405; 29824; 64415; 76942; C1713 ×2; C1894; J2250; J1100; J2405; J0690; J2001; J3010; J1170; J2795; J0330; J2704

== ENCOUNTER → 2021-08-05 | Outpatient (CLI) | payer MEDICARE, BC | END | disposition home or self-care (01) | LOC: LABPAT 13:31 | PROVIDERS: ATTEND Orthopaedic Surgery | DX: Z01.812 Encounter for preprocedural laboratory examination (principal); Z22.322 Carrier or suspected carrier of Methicillin resistant Staphylococcus aureus; M17.12 Unilateral primary osteoarthritis, left knee | CPT/HCPCS: 87070 ==

== ENCOUNTER 2021-09-22 11:28 | Observation (INO) | payer MEDICARE, BC ==
[2021-09-18 14:59] VITALS: BMI 28.8
--- NOTE | 2021-09-21 11:42 | HP ---
HISTORY AND PHYSICAL DATE OF SURGERY: 09/22/2021 Rajani Torres is a 71-year-old patient seen with symptomatic left knee osteoarthritis. We discussed options for treatment. She elected to proceed with left total knee arthroplasty. Consent was obtained. Clearance was provided by Dr. Lara. PAST MEDICAL HISTORY: Hypertension, hyperlipidemia, wte-jskfejm-dgkzrhoay diabetes. PAST SURGICAL HISTORY: Knee arthroscopy. DAILY MEDICATIONS: Metformin, simvastatin, Aleve, Burns. ALLERGIES: NONE. SOCIAL HISTORY: She denies current tobacco use. PHYSICAL EVALUATION OF THE LEFT KNEE: Range of motion is negative 2/3 to 125. Mild effusion. Tenderness, medial joint line. Crepitus, medial and patellofemoral compartments with range of motion. Some pain with patellofemoral compression. Ligaments stable. Hip rotation without pain. Distal neurovascular exam is intact. Left knee radiographs reveal severe osteoarthritic changes. IMPRESSION: 1. Left knee osteoarthritis. 2. Hypertension. 3. Hyperlipidemia. 4. Lkh-tgmclxh-bqamtnpoe diabetes. PLAN: Left total knee arthroplasty. MMODL / IJN: [id number] /
[~2021-09-22 11:28] MED LIST changes: +ACETAMINOPHEN TAB 500 MG TAB PO PRN; +DEXAMETHASONE SOD PHOSPHATE 4 MG/ML 1 ML VIAL IV ONE; +HYDROmorphone 0.5 MG/0.5 ML SYRINGE IVP PRN; +LACTATED RINGERS 1,000 ML IV SCH; +MELOXICAM 7.5 MG TAB PO PRN; +MIDAZOLAM 2 MG/2 ML VIAL IV PRN; +ONDANSETRON 4 MG/2 ML VIAL IVP ONE; -Pre Op ABX Message 1 EACH MISC MISCELLANE ONE; +TRANEXAMIC ACID IN NACL,ISO-OS 1,000 MG in SALINE 1 100ML.BAG IVPB PRN
[2021-09-22 12:34] LABS: Glucose,Whole Blood 139 mg/dL (70-110)
[2021-09-22] MEDS ORDERED: MIDAZOLAM 2 MG/2 ML VIAL IVP ONE (12:40)
[2021-09-22] MEDS ORDERED: ROPIVACAINE 0.2%-NS ON-Q PUMP 1,090 MG, EMPTY PAIN BALL 1 EACH MISCELLANE PRN (13:11)
--- NOTE | 2021-09-22 13:15 | P.ANPRN ---
Procedure Note - Anesthesia - Nerve Block Performed Left Adductor Canal Infusion Time Out Performed: Yes Date of Procedure: 09/22/21 Procedure Start Time: 12:39 Procedure Stop Time: 12:49 Location of Patient: PreOp Indication: Acute Post-Operative Pain, Requested by Surgeon Sedation Type: Sedate with meaningful contact maintained Preparation: Sterile Prep, Sterile Dressing Position: Supine Catheter: Indwelling Needle Types: Tomily Needle Gauge: 18 Ultrasound used to visualize needle placement: Yes Ultrasound used to observe medication spread: Yes Injectate: 0.5% Ropivacaine (see comment for volume) (15 ml + decadron 4 mg) Blood Aspirated: No Pain Paresthesia on Injection Noted: No Resistance on Injection: Normal Image Stored and Saved: Yes Events: Uneventful and Well Tolerated Left iPack Single Time Out Performed: Yes Date of Procedure: 09/22/21 Procedure Start Time: 12:50 Location of Patient: PreOp Indication: Acute Post-Operative Pain, Requested by Surgeon Sedation Type: Sedate with meaningful contact maintained Preparation: Sterile Prep, Sterile Dressing Position: Right Lateral Catheter: None Needle Types: On-Q Needle Gauge: 20 Ultrasound used to visualize needle placement: Yes Ultrasound used to observe medication spread: Yes Injectate: 0.5% Ropivacaine (see comment for volume) (15 ml + decadron 4 mg) Blood Aspirated: No Pain Paresthesia on Injection Noted: No Resistance on Injection: Normal Image Stored and Saved: Yes Events: Uneventful and Well Tolerated
[2021-09-22] MEDS ORDERED: TRANEXAMIC ACID IN NACL,ISO-OS 1,000 MG/100 ML BAG ONE (13:38)
[2021-09-22] MEDS ORDERED: fentaNYL (PF) 50 MCG/ML 2 ML AMP ONE (13:38)
[2021-09-22] MEDS ORDERED: MIDAZOLAM 2 MG/2 ML VIAL ONE (13:38)
[2021-09-22] MEDS ORDERED: PROPOFOL 10 MG/ML 20 ML VIAL IV ONE (13:38)
[2021-09-22] MEDS ORDERED: PHENYLEPHRINE-0.9% NACL SYG 1,000 MCG/10 ML SYRINGE ONE (13:38)
[2021-09-22] MEDS ORDERED: ceFAZolin 1,000 MG in SODIUM CHLORIDE 0.9% 1,000 ML IRRIGATION ONE (13:43)
[2021-09-22] MEDS ORDERED: LACTATED RINGERS 1,000 ML IV ONE (15:03)
[2021-09-22] MEDS ORDERED: HYDROmorphone 0.5 MG/0.5 ML SYRINGE IVP PRN ×2 (15:13)
[2021-09-22] MEDS ORDERED: NALOXONE 0.4 MG/ML 1 ML VIAL IV PRN (15:13)
[2021-09-22] MEDS ORDERED: HYDROcodone/APAP 5-325MG 1 EACH TAB PO PRN (15:13)
[2021-09-22] MEDS ORDERED: ONDANSETRON 4 MG/2 ML VIAL IVP PRN (15:13)
--- NOTE | 2021-09-22 15:13 | P.OP ---
Date of Procedure: 09/22/21 Preoperative Diagnosis: Left knee osteoarthritis Postoperative Diagnosis: Left knee osteoarthritis Procedure(s) Performed: Left total knee arthroplasty Implants: 1. Depuy attune cruciate retaining size 6 narrow left cemented femur 2. Depuy attune size 5 fixed bearing cemented tibial baseplate 3. Depuy attune size 6 fixed bearing cruciate retaining 10 mm polyethylene tibial insert 4. Depuy attune 35 mm all polyethylene cemented patella Anesthesia: regional (Adductor canal catheter, Ipack block), spinal Surgeon: Hai Bateman Financial Analysis Consultant #1: Rick Sapp Estimated Blood Loss (ml): 40 Pathology: other (Bone) Condition: stable Disposition: PACU Indications for Procedure: 71-year-old patient seen with symptomatic left knee osteoarthritis. After having treatment options discussed, she elected to proceed with left total knee arthroplasty. Operative Findings: See description of procedure Description of Procedure: Patient was taken to the operative suite after having an adductor canal catheter placed by the department of anesthesia. Patient underwent a spinal anesthetic by the department of anesthesia. Patient was given preoperative IV intake antibiotics and TXA. A well-padded tourniquet was placed about the left lower extremity. The lower extremity was then prepped and draped in the normal sterile orthopedic fashion. The extremity was elevated, a tourniquet was insufflated to 300. A standard anterior incision was made sharply through skin. Dissection was taken down through the subcutaneous soft tissues down to the extensor mechanism. A medial arthrotomy was performed, patella was everted and knee was flexed. There was advanced osteoarthritis noted. I introduced my distal intramedullary femoral drill. I then introduced the distal femoral cutting jig. Raymundo STACY secured the cutting jig with 2 pins. I held retractors in position while Raymundo STACY performed the distal femoral resection through the guide area we now removed her distal femoral cutting guide. We now placed our 4-in-1 femoral cutting block and positioned and it was secured with 2 pins by Raymundo STACY while I held the block in position. The distal femoral finishing was now completed. A proximal tibial cutting guide was positioned. I held the guide in the appropriate position with both hands well Raymundo STACY inserted stabilizing pins into the guide. Proximal tibial cut was made. We now placed a trial femoral component into position, along with an appropriate size tibial tray and insert. We now took the knee through range of motion and had full extension good flexion and good overall soft tissue balance noted. The patella was everted and stabilized with 2 towel clips held by Raymundo STACY while I performed a flush with patellar quad tendon utilizing a fresh sawblade. We templated the patella, appropriate drill holes were made. An appropriate trial patella was positioned, knee was taken through full range of motion with the patella tracking very nicely. The trial patella was removed. Drill holes were made through the femoral component. All trial components were removed after marking off the appropriate rotation of the tibia. Retractors were now positioned along the proximal tibia. An appropriate keel punch was made with the appropriate size tibial guide by myself on Raymundo STACY assisted by holding retractors. At this point appropriate size implants were chosen and opened. The joint was irrigated copiously with pulse lavage mechanical irrigation. The posterior capsule was infiltrated with local analgesic. The wound was irrigated with pulse lavage mechanical irrigation. We mixed antibiotic methylmethacrylate. We placed the knee into flexion. We placed multiple retractors assisted by Raymundo STACY to expose the proximal tibia. Once the methyl methacrylate was ready, the tibial component was cemented into place removing any excess methylmethacrylate form by both myself and Raymundo STACY. The femoral component was cemented into place removing the removing any excess methylmethacrylate performed by both myself and Raymundo STACY. We then inserted the appropriate size polyethylene tibial insert. We made sure that it was locked into position. We took the knee into full extension, and then back in a flexion making sure we had removed any excess methylmethacrylate. The patellar component was then cemented down and secured with clamp. Excess methylmethacrylate removed. We kept the knee in full extension, patellar clamp in position until methylmethacrylate had hardened. Once it had hardened the patellar clamp was removed. The knee was taken through full range of motion. The patella tracked nicely. There was good soft tissue balancing. The tourniquet was now released. Additional hemostasis was achieved via electrocautery. A second gram of TXA was given. The wound again was irrigated with pulse lavage mechanical irrigation. The superficial soft tissues were infiltrated local analgesic. The extensor mechanism was repaired with Ethibond suture. We checked the repair with range of motion and it was stable. The subcutaneous soft tissues were repaired with Vicryl in layers. The skin was approximated with pernio/Dermabond. Sterile dressings were applied followed by loose web roll and Cory bandage. The patient was transferred to a bed, and taken to recovery in stable and satisfactory condition. Raymundo STACY assisted with this complex procedure.
[2021-09-22 15:40] LABS: Glucose,Whole Blood 138 mg/dL (70-110)
--- NOTE | 2021-09-22 16:02 | XR ---
EXAMINATION TYPE: XR knee limited LT DATE OF EXAM: 09/22/2021 COMPARISON: NONE TECHNIQUE: Two views submitted HISTORY: Post op FINDINGS: There is a prosthetic knee in near anatomic alignment. There is soft tissue edema and emphysema. IMPRESSION: 1. Postoperative change. Appears in near-anatomic alignment
[2021-09-22] MEDS: HYDROcodone/APAP 7.5-325MG 1 EACH TAB PO PRN (17:56)
[2021-09-22] MEDS: HYDROmorphone 0.5 MG/0.5 ML SYRINGE IVP PRN ×2 (19:21→22:22)
[2021-09-22] MEDS: LACTATED RINGERS 1,000 ML IV SCH (19:38)
[2021-09-22] MEDS ORDERED: ATORVASTATIN 20 MG TAB PO SCH (21:00)
[2021-09-22] MEDS ORDERED: SENNOSIDES-DOCUSATE SODIUM 1 EACH TAB PO SCH (21:00)
[2021-09-22] MEDS: INSULIN ASPART (NovoLOG) 100 UNIT/ML VIAL SQ SCH (21:13)
[2021-09-22 21:16] LABS: Glucose,Whole Blood 280 mg/dL (70-110)
[2021-09-23] MEDS: HYDROcodone/APAP 7.5-325MG 1 EACH TAB PO PRN ×2 (01:53→09:43)
[2021-09-23 02:00] VITALS: TEMP 98.1
[2021-09-23] MEDS: LACTATED RINGERS 1,000 ML IV SCH (05:11)
--- NOTE | 2021-09-23 05:39 | P.CONS ---
History of Present Illness - Reason for Consult Consult date: 09/22/21 Postoperative medical management - Chief Complaint Left total knee arthroplasty - History of Present Illness 71-year-old female with hypertension, diabetes mellitus, hyperlipidemia Patient comes in for scheduled left total knee arthroplasty due to severe osteoarthritis failed conservative therapy patient reports limitations to the activities of daily living due to pain in her knee. patient tolerated procedure well no observed immediate postoperative comes conditions denies any chest pain or trouble breathing pain is well tolerated patient tolerated by mouth intake Review of Systems Pertinent positives as noted in HPI. All other systems were reviewed and are negative Past Medical History Past Medical History: Diabetes Mellitus, Hyperlipidemia, Hypertension, Osteoarthritis (OA) History of Any Multi-Drug Resistant Organisms: None Reported Past Surgical History: Appendectomy, Hysterectomy, Joint Replacement, Orthopedic Surgery Additional Past Surgical History / Comment(s): Right total knee replacement, right shoulder surgery. Past Anesthesia/Blood Transfusion Reactions: Motion Sickness, Postoperative Nausea & Vomiting (PONV) Past Psychological History: No Psychological Hx Reported Smoking Status: Never smoker, Second hand smoke exposure Past Alcohol Use History: None Reported Past Drug Use History: None Reported - Past Family History Mother Family Medical History: No Reported History Medications and Allergies Home Medications Medication Instructions Recorded Confirmed Type Simvastatin [Zocor] 40 mg PO HS 11/16/14 09/22/21 History metFORMIN HCL [Glucophage] 500 mg PO BID 11/16/14 09/22/21 History Ascorbic Acid [Vitamin C chew] 500 mg PO DAILY 02/05/21 09/22/21 History Lisinopril-Hctz 20-25 mg 1 tab PO QAM 02/05/21 09/22/21 History [Zestoretic 20-25] Cholecalciferol [Vitamin D3 (25 50 mcg PO DAILY 09/18/21 09/22/21 History Mcg = 1000 Iu)] Chromium Picolinate 200 mcg PO DAILY 09/18/21 09/22/21 History traMADol HCL 50 mg PO Q6H PRN 09/18/21 09/22/21 History Allergies Allergy/AdvReac Type Severity Reaction Status Date / Time No Known Allergies Allergy Verified 09/22/21 11:59 Physical Exam Vitals: Vital Signs Temp Pulse Resp BP BP Pulse Ox 09/22/21 19:29 98.2 F 62 16 178/71 94 L 09/22/21 17:53 98.7 F 89 17 154/76 95 09/22/21 16:59 60 14 134/63 94 L 09/22/21 16:29 68 16 153/69 96 09/22/21 16:14 75 16 126/61 100 09/22/21 15:59 56 L 16 142/68 100 09/22/21 15:44 60 16 131/74 100 09/22/21 15:29 97.1 F L 60 16 142/64 98 09/22/21 13:05 60 16 155/72 97 09/22/21 12:06 97.9 F 62 16 150/72 97 Intake and Output 09/22/21 09/22/21 09/22/21 06:59 14:59 22:59 Intake Total 1051 100 Output Total 40 Balance 1051 60 Intake: IV 1051 100 Output: Estimated Blood Loss 40 Other: Weight 77.9 kg 77.9 kg Constitutional: No acute distress, conversant, pleasant Eyes: Anicteric sclerae, moist conjunctiva, Pupils equal round reactive to light Lungs: Clear to auscultation Clear to percussion Normal respiratory effort, no accessory muscle use Cardiovascular: Heart regular in rate and rhythm, No murmurs, gallops, or rubs No peripheral edema Abdominal: Soft Nontender, no guarding, rebound or rigidity Abdomen moving with respiration Normoactive bowel sounds No hepatomegaly, No splenomegaly No palpable mass No abdominal wall hernia noted Psychiatric: Alert and oriented to person, place and time Appropriate affect fair judgement Neuro Muscles Strength 5/5 in all 4 extremities with limitations exam over the left lower extremity due to surgery Sensation to light touch grossly present throughout Cranial nerves II-XII grossly intact No focal sensory deficits Results Labs: Abnormal Lab Results - Last 24 Hours (Table) 09/22/21 09/22/21 09/22/21 Range/Units 12:30 15:38 21:10 POC Glucose (mg/dL) 139 H 138 H 280 H (70-110) mg/dL Assessment and Plan Assessment: Left total knee arthroplasty secondary to severe arthritis postoperative day 0 DVT prophylaxis pain control per orthopedic Due to diabetes mellitus Hold oral hypoglycemic agents Insulin sliding scale Hypertension resume lisinopril Check CBC and BMP in the morning Patient stable from medical standpoint Thank you for allowing us to participate in the care of this patient. Do not hesitate to contact us with questions. Someone can be reached from the [facility] hospitalist group at all hours of the day at [phone].
[2021-09-23] MEDS ORDERED: ENOXAPARIN 30 MG/0.3 ML SYRINGE SQ SCH (06:00)
[2021-09-23] MEDS: HYDROmorphone 0.5 MG/0.5 ML SYRINGE IVP PRN (06:13)
[2021-09-23 07:18] LABS: Glucose,Whole Blood 227 mg/dL (70-110)
[2021-09-23 07:48] VITALS: BP 138/72; PULSE 61
[2021-09-23 08:05] LABS: African American GFR (CKD) >90 (>60 ml/min/1.73 sqM); Anion Gap 10 mmol/L; Blood Urea Nitrogen 16 mg/dL (7-17); Calcium 8.9 mg/dL (8.4-10.2); Carbon Dioxide 25 mmol/L (22-30); Chloride 100 mmol/L (98-107); Glucose 223 mg/dL (74-99); Non-African American GFR(CKD) 84 (>60 ml/min/1.73 sqM); Potassium 3.7 mmol/L (3.5-5.1); Sodium 135 mmol/L (137-145)
[2021-09-23 08:10] VITALS: RESP 19
[2021-09-23 08:41] LABS: Basophils % (A) 0 %; Eosinophils % (A) 0 %; HCT 36.1 % (34.0-46.0); HGB 12.6 gm/dL (11.4-16.0); Lymphocytes # (A) 1.1 k/uL (1.0-4.8); Lymphocytes % (A) 9 %; MCH 31.2 pg (25.0-35.0); MCHC 34.9 g/dL (31.0-37.0); MCV 89.3 fL (80.0-100.0); Mean Platelet Volume 8.8; Monocytes # (A) 0.5 k/uL (0-1.0); Monocytes % (A) 4 %; Neutrophils # (A) 10.3 k/uL (1.3-7.7); Neutrophils % (A) 86 %; Platelet Count 235 k/uL (150-450); RBC 4.04 m/uL (3.80-5.40); RDW 13.1 % (11.5-15.5); WBC 11.9 k/uL (3.8-10.6)
--- NOTE | 2021-09-23 08:54 | P.PN ---
Progress Note - Text Progress Note Date: 09/23/21 Patient doing well. Pain controlled. Ambulating. Denies weakness or headache. Adductor canal catheter site clean and dry POD #1 s/p L TKA w/ OnQ adductor canal nerve block and iPACK nerve block - doing well
[2021-09-23] MEDS ORDERED: LISINOPRIL-HCTZ 20-25 MG 1 EACH TAB PO SCH (09:00)
--- NOTE | 2021-09-23 09:01 | P.PN ---
Subjective Progress Note Date: 09/23/21 Principal diagnosis: Status post left total knee arthroplasty Patient was evaluated today at bedside, she is resting in her hospital bed. Patient states that she's doing very well at this time, she has slight discomfort in the knee with ambulation. She is urinating with no difficulties. Patient denies headaches, lightheadedness, chest pain or shortness of breath. Objective - Vital Signs Vital signs: Vital Signs Temp 98.1 F 09/23/21 08:08 Pulse 61 09/23/21 08:08 Resp 19 09/23/21 08:08 BP 138/72 09/23/21 08:08 Pulse Ox 96 09/23/21 08:08 FiO2 Intake & Output 09/22/21 09/23/21 09/23/21 18:59 06:59 18:59 Intake Total 1151 Output Total 40 Balance 1111 Weight 77.9 kg Intake: IV 1151 Output: Estimated Blood Loss 40 Other: Voiding Method Toilet Toilet # Voids 4 - Exam Left lower extremity: Incision is clean, dry, and intact. The foam dressing is in good condition. There is minimal soft tissue swelling and ecchymosis surrounding the medial and lateral aspects of the incision. Calf is soft, no tenderness with palpation. Plantar flexion, dorsiflexion, EHL, FHL are intact. Sensory exam to light touch throughout the extremity is intact, dorsal pedis pulses 2+. - Labs CBC & Chem 7: 09/23/21 05:57 09/23/21 05:57 Labs: Abnormal Lab Results - Last 24 Hours (Table) 09/22/21 09/22/21 09/22/21 Range/Units 12:30 15:38 21:10 WBC (3.8-10.6) k/uL Neutrophils # (1.3-7.7) k/uL Sodium (137-145) mmol/L Glucose (74-99) mg/dL POC Glucose (mg/dL) 139 H 138 H 280 H (70-110) mg/dL 09/23/21 09/23/21 09/23/21 Range/Units 05:57 05:57 07:17 WBC 11.9 H (3.8-10.6) k/uL Neutrophils # 10.3 H (1.3-7.7) k/uL Sodium 135 L (137-145) mmol/L Glucose 223 H (74-99) mg/dL POC Glucose (mg/dL) 227 H (70-110) mg/dL Assessment and Plan Assessment: Postoperative day #1 status post left total knee arthroplasty Plan: Pain control, plan for discharge home on [place] 5 mg/325 mg and tramadol 50 mg DVT prophylaxis, aspirin 81 mg twice a day for 30 days Wound care instructions: We did discuss On-Q ball removal, foam dressing, showering instructions, and icing and elevating Encourage incentive spirometry Home physical therapy/nursing after discharge Medical recommendations Discharge planning: Patient stable for discharge home today Time with Patient: Less than 30
--- NOTE | 2021-09-23 09:04 | P.DS ---
Providers Date of admission: 09/23/21 07:31 Expected date of discharge: 09/23/21 Attending physician: Hai Bateman Consults: 09/22/21 15:13 Consult Physician Routine Consulting Provider: Lisa Berkowitz Consult Reason/Comments: Medical management Do you want consulting provider notified?: Yes [facility] Course: Date of admission: 09/22/2021 Date of discharge: 09/23/2021 Admission diagnosis: Status post left total knee arthroplasty Discharge diagnosis: Same Attending physician: Dr. Bateman Surgical procedures: Left total knee arthroplasty Brief history: Patient is a 71-year-old female with a history of progressive primary left knee osteoarthritis. At this point patient has failed conservative treatment measures and has opted to proceed with a elective left total knee arthroplasty. Hospital course: Details of patient's surgery can be found in operative report. Patient tolerated the procedure well and was subsequently transported to orthopedic floor. Patient's orthopeidc and medical care was provided daily. Patient had daily laboratory tests performed for evaluation of overall blood counts. Patient had daily physical therapy to include strengthening range of motion as well as education with walker ambulation. Patient was treated with Lovenox for their postoperative DVT prophylaxis during their inpatient stay. Patient was noted to have a relatively uneventful postoperative course. Patient reported satisfactory pain control with oral pain medications by postoperative day 0. Patient showed satisfactory progress with physical therapy. Patient moved steadily through the program and had no difficulty meeting the goals by postoperative day 1. Given patient's otherwise satisfactory course and having met physical therapy goals, plan is to discharge patient home on postoperative day 1. Discharge condition/disposition: Patient will be discharged home in stable condition. Discharge medications: Instructions are given on resumption of patient's normal daily medications per primary care recommendation, in addition patient will be prescribed [place] 5 mg/325 mg, tramadol, Colace 100 mg, aspirin 81 mg. Discharge instructions: 1. Wound care and infection precautions, keep incision dry and covered while showering, no lotions, creams, moisturizers. No soaking, tubs, pools, hottubs. Do not scrub over the incision. 2. Weight-bear as tolerated with walker / cane until follow-up. 3. Ice and elevate when necessary. Do not exceed 20 minutes per hour with ice pack. 4. Utilize compression sleeve until seen at first follow up appointment. 5. Visiting nursing care. 6. Home physical therapy including home CPM. 7. Pain meds and anticoagulants per prescription. 8. Pain medication has potential to cause constipation. Increase oral fluid and fiber intake. Contact primary care provider if you have not had a bowel movement within 48 hours after discharge 9. No anti-inflammatory medication until discussed at first post operative visit, this including Motrin, Aleve, Mobic, Diclofenac. 10. Follow up in office at 2 weeks postop with Raymundo Sapp PA-C/Tyson Baca 11. Follow up with your primary care doctor 7-10 days after discharge. 12. Contact [facility] with any questions, . Procedures: Left total knee arthroplasty Patient Condition at Discharge: Good Plan - Discharge Summary Discharge Rx Participant: No New Discharge Prescriptions: New HYDROcodone/APAP 5-325MG [[place] 5-325] 1 tab PO Q6HR PRN #28 tab PRN Reason: Pain Aspirin [Adult Low Dose Aspirin EC] 81 mg PO BID #60 tab Docusate [Colace] 100 mg PO DAILY #30 capsule traMADol HCl [Ultram] 50 mg PO Q6H PRN #28 tab PRN Reason: Pain No Action metFORMIN HCL [Glucophage] 500 mg PO BID Simvastatin [Zocor] 40 mg PO HS Cholecalciferol [Vitamin D3 (25 Mcg = 1000 Iu)] 50 mcg PO DAILY Chromium Picolinate 200 mcg PO DAILY Lisinopril-Hctz 20-25 mg [Zestoretic 20-25] 1 tab PO QAM Ascorbic Acid [Vitamin C chew] 500 mg PO DAILY traMADol HCL 50 mg PO Q6H PRN PRN Reason: Pain Discharge Medication List Simvastatin [Zocor] 40 mg PO HS 11/16/14 [History] metFORMIN HCL [Glucophage] 500 mg PO BID 11/16/14 [History] Ascorbic Acid [Vitamin C chew] 500 mg PO DAILY 02/05/21 [History] Lisinopril-Hctz 20-25 mg [Zestoretic 20-25] 1 tab PO QAM 02/05/21 [History] Cholecalciferol [Vitamin D3 (25 Mcg = 1000 Iu)] 50 mcg PO DAILY 09/18/21 [History] Chromium Picolinate 200 mcg PO DAILY 09/18/21 [History] traMADol HCL 50 mg PO Q6H PRN 09/18/21 [History] Aspirin [Adult Low Dose Aspirin EC] 81 mg PO BID #60 tab 09/23/21 [Rx] Docusate [Colace] 100 mg PO DAILY #30 capsule 09/23/21 [Rx] HYDROcodone/APAP 5-325MG [[place] 5-325] 1 tab PO Q6HR PRN #28 tab 09/23/21 [Rx] traMADol HCl [Ultram] 50 mg PO Q6H PRN #28 tab 09/23/21 [Rx] Follow up Appointment(s)/Referral(s): Rick Sapp, PAC [PHYSICIAN [facility]] - 2 Weeks Patient Instructions/Handouts: Knee Replacement (DC) Activity/Diet/Wound Care/Special Instructions: Orthopedic Discharge Instructions: 1. Wound care and infection precautions, keep incision dry and covered while showering, no lotions, creams, moisturizers. No soaking, pools, hot tubs. Do not scrub over incision. 2. Weight-bear as tolerated with walker / cane until follow-up. 3. Ice and elevate when necessary. Do not exceed 20 minutes per hour with ice pack. 4. Utilize compression sleeve until seen at first follow up appointment. 5. Pain meds and anticoagulants per prescription. 6. Pain medication has potential to cause constipation. Increase oral fluid and fiber intake. Contact primary care provider if you have not had a bowel movement within 48 hours after discharge. 7. No anti-inflammatory medication until discussed at first post operative visit, this including Motrin, Aleve, Mobic, Diclofenac 8. Follow up in office at 2 weeks postop with Raymundo Sapp PA-C / Mick Norwood 9. Follow up with your primary care doctor 7-10 days after discharge. 10. Contact [facility] with any questions, . Keep silver foam dressing on for 7 days. Silver foam dressing may be removed on 09/29/2021. While showering, cover dressing with Saran wrap. May shower directly over incision once silver foam dressing is removed Discharge Disposition: HOME WITH HOME HEALTH SERVICES
[2021-09-23] MEDS: INSULIN ASPART (NovoLOG) 100 UNIT/ML VIAL SQ SCH (10:28)
[2021-09-23 11:44] LABS: Glucose,Whole Blood 170 mg/dL (70-110)
[2021-09-23] MEDS ORDERED: MULTIVITAMINS, THERA 1 EACH TAB PO SCH (12:00)
== END 2021-09-23 12:11 | disposition home health service (06) ==
LOC: OR 11:28 → 4SSUR 17:23 → OR 09-23 07:21 → 4SSUR 09-23 07:31
PROVIDERS: ADMIT Orthopaedic Surgery; ATTEND Orthopaedic Surgery
DX: M17.12 Unilateral primary osteoarthritis, left knee (principal); I10 Essential (primary) hypertension; E78.2 Mixed hyperlipidemia; E11.9 Type 2 diabetes mellitus without complications; Z77.22 Contact with and (suspected) exposure to environmental tobacco smoke (acute) (chronic); Z98.890 Other specified postprocedural states; Z90.710 Acquired absence of both cervix and uterus; Z96.651 Presence of right artificial knee joint; Z90.49 Acquired absence of other specified parts of digestive tract; Z79.84 Long term (current) use of oral hypoglycemic drugs; Z79.1 Long term (current) use of non-steroidal anti-inflammatories (NSAID); Z79.891 Long term (current) use of opiate analgesic; Z79.899 Other long term (current) drug therapy
CPT/HCPCS: 97161; 64999; 64448; 76942; 80048; 85025; 88300; 73560; 27447; G0378; C1776; C1713 ×2; J2250; J1100; J0690 ×3; J2405; J3010; J2370; J2704; J1170 ×2; J2795

== ENCOUNTER → 2022-02-01 | Outpatient (CLI) | payer MEDICARE, BC ==
--- NOTE | 2022-02-01 17:15 | MR ---
EXAMINATION TYPE: MR femur/thigh LT wo/w con DATE OF EXAM: 02/01/2022 COMPARISON: None HISTORY: Lump mid thigh, anterior aspect. Pt turned and felt something pop. Recent knee surgery. Hernando er placed. CONTRAST: Standard multiplanar, multisequence MRI departmental protocol images were obtained without contrast a nd with 7 mL intravenous Gadavist gadolinium contrast. On the T2 images there is increased signal in the medullary left femur from the midshaft to the dista l shaft measuring 17 cm in length. The cortex appears intact. There is 3.7 x 1.2 cm area of decreased signal in the soft tissues of the anterior lower thigh on the T2 images. This appears isointense on the T1 images with no enhancement. This is in the area of the concern which is marked on the anterior lower thigh. Muscle bundles of the thigh are otherwise fairly symmetric. There is no pathologic enhancement. IMPRESSION: There is edema in the left femur along the mid and distal shaft that is likely related to bone bruise . No fracture line seen. No enhancement seen to suggest a tumor. Elongated low signal area in the anterior lower thigh is likely related to muscle tear and hematoma.
== END | disposition home or self-care (01) ==
LOC: RADMRIMAIN 13:20
PROVIDERS: ATTEND Family Medicine
DX: R22.42 Localized swelling, mass and lump, left lower limb (principal); M79.605 Pain in left leg
CPT/HCPCS: 73720; A9585

== ENCOUNTER 2022-12-22 10:11 | Day surgery (SDC) | payer MEDICARE, BC ==
[2022-12-17 13:48] VITALS: BMI 27.4
[~2022-12-22 10:11] MED LIST changes: -ACETAMINOPHEN TAB 500 MG TAB PO PRN; +ALPRAZolam 0.25 MG TAB PO PRN; +ALPRAZolam 0.5 MG TAB PO PRN; +ASPIRIN 325 MG TAB PO ONE; -DEXAMETHASONE SOD PHOSPHATE 4 MG/ML 1 ML VIAL IV ONE; -HYDROmorphone 0.5 MG/0.5 ML SYRINGE IVP PRN; -LACTATED RINGERS 1,000 ML IV SCH; -MELOXICAM 7.5 MG TAB PO PRN; -MIDAZOLAM 2 MG/2 ML VIAL IV PRN; +NITROGLYCERIN SL TABS 0.4 MG TAB SUBLINGUAL PRN; -ONDANSETRON 4 MG/2 ML VIAL IVP ONE; +SODIUM CHLORIDE 0.9% 1,000 ML in EMPTY BAG 1 BAG IV SCH; -TRANEXAMIC ACID IN NACL,ISO-OS 1,000 MG in SALINE 1 100ML.BAG IVPB PRN
[2022-12-22 10:49] LABS: Glucose,Whole Blood 159 mg/dL (70-110)
[2022-12-22 10:52] VITALS: RESP 16; TEMP 98.3
[2022-12-22 11:08] LABS: African American GFR (CKD) >90 (>60 ml/min/1.73 sqM); Anion Gap 8 mmol/L; Blood Urea Nitrogen 16 mg/dL (7-17); Calcium 9.8 mg/dL (8.4-10.2); Carbon Dioxide 29 mmol/L (22-30); Chloride 100 mmol/L (98-107); Glucose 153 mg/dL (74-99); Non-African American GFR(CKD) 88 (>60 ml/min/1.73 sqM); Potassium 4.4 mmol/L (3.5-5.1); Sodium 137 mmol/L (137-145)
[2022-12-22] MEDS ORDERED: VERAPAMIL 2.5 MG/ML 2 ML AMP ONE (11:51)
[2022-12-22] MEDS ORDERED: LIDOCAINE 1% INJ 10MG/ML (20 ML MDV) ONE (11:52)
[2022-12-22] MEDS ORDERED: HEPARIN SODIUM 1,000 UN/ML (10ML VL) ONE (12:08)
[2022-12-22] MEDS ORDERED: fentaNYL (PF) 50 MCG/ML 2 ML AMP ONE (12:09)
[2022-12-22] MEDS ORDERED: fentaNYL (PF) 50 MCG/ML 2 ML AMP IVP ONE (12:42)
[2022-12-22] MEDS ORDERED: LIDOCAINE 1% INJ 10MG/ML (20 ML MDV) SQ ONE (12:46)
[2022-12-22] MEDS ORDERED: VERAPAMIL SYRINGE (5 MG/10 ML) INTRAARTER ONE (12:47)
[2022-12-22] MEDS ORDERED: HEPARIN SODIUM 1,000 UN/ML (10ML VL) IV ONE (12:51)
[2022-12-22] MEDS ORDERED: IOPAMIDOL-370 100ML BTL INJ ONE (12:56)
[2022-12-22] MEDS ORDERED: RX INFO: IV CONTRAST WAS GIVEN 1 EACH MISC MISCELLANE PRN (13:14)
[2022-12-22] MEDS ORDERED: SODIUM CHLORIDE 0.9% 1,000 ML IV SCH (13:15)
--- NOTE | 2022-12-22 13:23 | P.CARDCATH ---
Date of Procedure: 12/22/22 Description of Procedure: Cardiac Catheterization: The patient is a 72-year-old female with known history of hypertension, hyperlipidemia and diabetes who has been complaining of dyspnea on exertion and fatigue. Her MPI showed inferior wall ischemia. Recommendations were made regarding cardiac catheterization, the risks and the complications were discussed with the patient who is in full understanding and agreement. 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 Using Xylocaine Anesthesia and modified Seldinger technique, a 6-[place] sheath was introduced in the right radial artery . Subsequently, selective coronary angiography was performed using a 5-[place] 3.5 bend Latha catheter. Multiple views of the coronary artery including hemiaxial views were obtained. The right Latha catheter was used to cross the aortic valve and LVEDP was calculated. Following that, catheter and sheath were removed. Hemostasis was obtained with deployment of vascular band . There was no immediate complication. Patient was returned to room in stable condition. Of note, the patient received a total of 4000 units of intravenous heparin as well as intra-arterial verapamil. Findings: Fluoroscopy: Calcifications of all the coronary arteries was noted Left main: This is a large size vessel, bifurcating into LAD and left circumflex, left main has no obstructive disease. LAD: This is a large size vessel more tortuous in the midsegment. It gives rise to a moderately sized diagonal branch. At the bifurcation of the diagonal branch there is a 50% plaque with about 70% lesion at the ostium of the branch. The mid LAD has another 40-50% plaque Left circumflex: A nondominant vessel, giving rise to a large obtuse marginal branch. This measured branch in the mid segment has a 20-30% plaque with no high-grade stenosis RCA:. This is a large dominant vessel, bifurcating into PDA and PLV. The right coronary artery in the mid and distal segment is diffusely diseased with multiple plaques to 40%. Left Ventriculogram: Not performed Hemodynamics: There was no gradient across the aortic valve, LVEDP was 12-16 mmHg Conclusion: 1. Calcified coronary arteries 2. Moderate disease in the mid LAD with significant disease in the ostium of the diagonal branch 3. Mild to moderate disease in the RCA 4. Mild disease in the left circumflex Recommendations: In view of the anatomy have recommended to maximize medical therapy, the ostium of the diagonal branch disease does not correlate with her stress test. The findings and the recommendations were discussed with the patient and the family and they were in full understanding and agreement. Duration of sedation is 11 minutes.
[2022-12-22 16:45] VITALS: BP 126/69; PULSE 66
[2022-12-22] MEDS ORDERED: ASPIRIN 81 MG PO SCH (21:00)
[2022-12-22] MEDS ORDERED: ATORVASTATIN 20 MG TAB PO SCH (21:00)
[2022-12-23] MEDS ORDERED: LISINOPRIL-HCTZ 20-25 MG 1 EACH TAB PO SCH (09:00)
== END 2022-12-22 16:42 | disposition home or self-care (01) ==
LOC: CATHCVL 10:11
PROVIDERS: ATTEND Internal Medicine Interventional Cardiology
DX: R94.39 Abnormal result of other cardiovascular function study (principal); I10 Essential (primary) hypertension; E78.5 Hyperlipidemia, unspecified; E11.9 Type 2 diabetes mellitus without complications; M19.90 Unspecified osteoarthritis, unspecified site; Z87.891 Personal history of nicotine dependence; Z79.84 Long term (current) use of oral hypoglycemic drugs; Z79.899 Other long term (current) drug therapy
CPT/HCPCS: 93458; 80048; 99152; C1769 ×2; C1894; J2001; J3010; J1644; Q9967

== ENCOUNTER → 2023-05-31 | Outpatient (CLI) | payer MEDICARE, BC ==
--- NOTE | 2023-05-31 17:05 | US ---
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 Indirect Doppler criteria was utilized. FINDINGS: EXAM MEASUREMENTS: RIGHT: Peak Systolic Velocity (PSV) cm/sec ----- Right CCA: 96.5 ----- Right ICA: 144.7 ----- Right ECA: 86.7 ICA/CCA ratio: 1.5 RIGHT: End Diastole cm/sec ----- Right CCA: 21.5 ----- Right ICA: 26.8 ----- Right ECA: 8.7 LEFT: Peak Systolic Velocity (PSV) cm/sec ----- Left CCA: 112.8 ----- Left ICA: 174.6 ----- Left ECA: 112.1 ICA/CCA ratio: 1.5 LEFT: End Diastole cm/sec ----- Left CCA: 18.3 ----- Left ICA: 38.6 ----- Left ECA: 16.3 VERTEBRALS (direction of flow): Right Vertebral: Antegrade Left Vertebral: Antegrade Rhythm: Normal RAILROAD CONSTRUCTION DIRECTOR NOTES: Intimal thickening seen bilaterally. Plaque seen within bilateral bulbs. Elevate d velocities within bilateral ICAs IMPRESSION: 50-69% stenosis of the bilateral carotid bifurcations. Criteria for Assigning % of Stenosis / Diameter reduction (Estimation based on the indirect measurements of the internal carotid artery velocities (ICA PSV). 1. Normal (no stenosis)=ICA PSV < 125 cm/s: ratio < 2.0: ICA EDV<40 cm/s. 2. Less than 50% stenosis=ICA PSV < 125 cm/s: ratio < 2.0: ICA EDV<40 cm/s. 3. 50 to 69% stenosis=ICA PSV of 125 to 230 cm/s: ration 2.0 ? 4.0: ICA EDV 40-100 cm/s. 4. Greater than 70% stenosis to near occlusion= ICA PSV > 230 cm/s: ratio > 4.0: ICA EDV > 100 cm/s. 5. Near occlusion= ICA PSV velocities may be low or undetectable: variable ratio and ICA EDV. 6. Total occlusion=unable to detect flow.
== END | disposition home or self-care (01) ==
LOC: RADUSWWP 15:06
PROVIDERS: ATTEND Family Medicine
DX: I65.23 Occlusion and stenosis of bilateral carotid arteries (principal); H43.813 Vitreous degeneration, bilateral; H35.033 Hypertensive retinopathy, bilateral
CPT/HCPCS: 93880